=== PATIENT | female | born 1950 | race Caucasian/White ===

== ENCOUNTER 2019-11-14 12:25 | Emergency (ER) | payer MEDICARE, OTHER, SELFPAY ==
[2019-11-14] VITALS (12 sets, daily range): BP systolic 112–143; BP diastolic 55–69; PULSE 63–95; RESP 11–18; TEMP 36.9; O2SAT 98–100; BMI 22.4
--- NOTE | 2019-11-14 12:49 | ED_ITS ---
HPI - Chest Pain General Chief Complaint: Dizziness Stated Complaint: BP IS DROPPING, HAS BEEN FOR SOME TIME Time Seen by Provider: 11/14/19 12:30 Source: patient and family Mode of arrival: Wheelchair History of Present Illness HPI narrative: Patient is a 61-year-old female who presents with a variety of symptoms. Today she is having some chest heaviness and discomfort. She noticed when she woke up this morning she has bilateral arm heaviness. She had up and was watering the plants with the hose and noted that she had chest heaviness. She also felt like she was short of breath during this activity as well. She does does not feel quite right. She is currently being worked up for postprandial hypotension. She says for the past 1 month every time she eats her blood pressure drops so she has been keeping very good track of her blood pressure. She is scheduled for stress test and 4 days was previously seen by Cardiology last week. She denies having any chest pain now but just feels weak and fatigued. Related Data Home Medications Medication Instructions Recorded Confirmed ESOMEPRAZOLE SODIUM (NEXIUM) 20 mg PO QDAY@0600 #0 01/26/12 [ACYCLOVIR] 400 mg PO Q DAY #0 01/26/12 [FREDO MAG ZINC] #0 01/26/12 [CITRUCEL] 1 tbls PO QDAY #0 01/26/12 [D3] 1,000 iu PO QDAY #0 01/26/12 [DOCOSATE SODIUM] 100 mg PO QDAY #0 01/26/12 [ECOTRIN ASPIRIN] 81 mg PO #0 01/26/12 [LIPITOR-ATORVASTATIN] 20 mg PO QDAY #0 01/26/12 [LYRICA] 50 mg #0 01/26/12 [MAGNESIUM] 250 mg PRN #0 01/26/12 [OMEGA 3] 880 mg PO BID #0 01/26/12 [ORENCIA INFUSION] 750 mg #0 01/26/12 [OXYCODONE ACETAMINO] PRN #0 01/26/12 [VITAMIN B12] 500 mcg #0 01/26/12 [VITAMIN B6] 100 mg PO #0 01/26/12 [VITAMIN C] 1,000 mg PO QDAY #0 01/26/12 [XANAX] 0.25 mg PO BID #0 11/16/12 Allergies Allergy/AdvReac Type Severity Reaction Status Date / Time bacitracin Allergy Mild Blister Verified 11/14/19 12:50 neomycin Allergy Mild Blister Verified 11/14/19 12:50 [From Neosporin ([id number])] polymyxin B Allergy Mild Blister Verified 11/14/19 12:50 [From Neosporin ([id number])] PETROLEM BASEDM OINT Allergy Intermediate BLISTER Uncoded 06/20/17 12:14 Review of Systems Review of Systems ROS Unobtainable: All systems reviewed & are unremarkable except as noted in HPI and below Constitutional Constitutional: Denies chills, Denies fever(s), Denies lethargy and Denies weakness Eyes Eyes: Denies change in vision, Denies eye discharge, Denies irritation and Denies loss of vision Cardiovascular Cardiovascular: Reports as per HPI and Reports dyspnea on exertion Respiratory Respiratory: Denies excessive phlegm production and Reports dyspnea on exertion Gastrointestinal Gastrointestinal: Denies abdominal pain, Denies change in bowel habits, Denies diarrhea, Denies nausea and Denies vomiting Musculoskeletal Musculoskeletal: Denies arthralgias and Denies back pain Integumentary/Breasts Skin/Breast: Denies pruritus, Denies erythema, Denies rash and Denies wounds Neurologic Neurologic: Denies loss of vision and Denies weakness Patient History Medical History (Updated 11/14/19 @ 17:47 by Clare Montana DO) Hyperlipidemia (Acute) Social History Smoking Status: Never smoker Smoking Status: Never smoker alcohol intake frequency: 0-2 drinks per day Substance Use Type: does not use Exam Initial Vital Signs Initial Vital Signs: Vital Signs Blood Pressure 138/63 11/14/19 12:34 GENERAL: Anxious appearing middle-aged female and in no acute distress. HEENT: Head atraumatic,EOMI, pupils reactive, face symmetric, moist mucous membranes CARDIOVASCULAR: Regular rate and rhythm without murmurs, rubs or gallops. RESPIRATORY: Breath sounds equal bilaterally, no wheezes rales or rhonchi. ABDOMEN: Soft, nontender. Normoactive bowel sounds all 4 quadrants. No guarding or rebound. EXTREMITIES: Normal range of motion, no clubbing or edema. Neurovascularly intact NEUROLOGICAL: Alert and oriented x4.Normal gait and speech. Cranial nerves II through XII grossly intact. SKIN: Warm, dry, no laceration, no petechiae, no rashes or lesions. Course Orders Ordered: ED Orders 11/14/19 12:42 EKG-12 Lead Routine 11/14/19 12:48 XR chest 1V Stat 11/14/19 12:55 Complete Blood Count AUTO DIFF Stat Comprehensive Metabolic Panel Stat Lipase Stat NT-proBNP (BNP-Adult 18+) Stat Partial Thromboplastin Time Stat Prothrombin Time INR Stat Troponin & CK Cardiac Panel Stat 11/14/19 14:58 Troponin I Stat Discontinued Medications Sodium Chloride (Normal Saline 0.9%) 1,000 mls @ 1,000 mls/hr IV BOLUS ONE Stop: 11/14/19 13:46 Last Infusion: 11/14/19 15:52 Dose: 0 mls/hr Documented by: Admin: 11/14/19 13:30 Dose: 1,000 mls/hr Documented by: SANA Vital Signs Vital signs: Vital Signs - 8 hr 11/14/19 12:34 11/14/19 12:35 11/14/19 12:36 Temperature Pulse Rate 88 95 H Pulse Rate [Orthostatic Lying] Pulse Rate [Orthostatic Sitting] Pulse Rate [Orthostatic Standing] Respiratory Rate Blood Pressure 138/63 137/64 143/69 H Blood Pressure [Orthostatic Lying] Blood Pressure [Orthostatic Sitting] Blood Pressure [Orthostatic Standing] Pulse Oximetry 100 100 11/14/19 12:40 11/14/19 12:47 11/14/19 13:00 Temperature 98.5 F Pulse Rate 84 67 Pulse Rate [Orthostatic Lying] 63 Pulse Rate [Orthostatic Sitting] 64 Pulse Rate [Orthostatic Standing] 69 Respiratory Rate 17 11 L Blood Pressure 138/63 125/63 Blood Pressure [Orthostatic Lying] 138/63 Blood Pressure [Orthostatic Sitting] 137/64 Blood Pressure [Orthostatic Standing] 143/69 H Pulse Oximetry 99 100 11/14/19 13:30 11/14/19 14:00 11/14/19 14:30 Temperature Pulse Rate 71 69 73 Pulse Rate [Orthostatic Lying] Pulse Rate [Orthostatic Sitting] Pulse Rate [Orthostatic Standing] Respiratory Rate 18 Blood Pressure 118/56 L 113/55 L 122/58 L Blood Pressure [Orthostatic Lying] Blood Pressure [Orthostatic Sitting] Blood Pressure [Orthostatic Standing] Pulse Oximetry 100 98 99 11/14/19 15:00 11/14/19 15:15 11/14/19 15:30 Temperature Pulse Rate 69 64 Pulse Rate [Orthostatic Lying] Pulse Rate [Orthostatic Sitting] Pulse Rate [Orthostatic Standing] Respiratory Rate 16 17 Blood Pressure 113/55 L 117/56 L 112/56 L Blood Pressure [Orthostatic Lying] Blood Pressure [Orthostatic Sitting] Blood Pressure [Orthostatic Standing] Pulse Oximetry 100 99 MDM - Chest Pain Lab Data Attestation: I reviewed the patient's lab results. Result diagrams: 11/14/19 12:55 11/14/19 12:55 Labs: Lab Results 11/14/19 11/14/19 11/14/19 Range/Units 12:55 12:55 12:55 WBC 5.7 (4.5-11.0) X10^3/uL RBC 4.41 (4.0-5.2) X10^6/uL Hgb 13.4 (12.0-16.0) g/dL Hct 40.9 (36-46) % MCV 92.7 (80-100) fL MCH 30.4 (26-34) PG MCHC 32.8 (30-36) % RDW 12.8 (11.6-14.8) % Plt Count 280 (150-400) X10^3/uL Neut % (Auto) 70.2 (50-75) % Lymph % (Auto) 21.5 L (25-40) % [place] % (Auto) 6.4 (3-14) % Eos % (Auto) 1.4 L (2-4) % Baso % (Auto) 0.5 (0-2) % Neut # (Auto) 4000 (2257-7628) /uL Lymph # (Auto) 1200 (6714-6395) /uL [place] # (Auto) 400 (0-900) /uL Eos # (Auto) 100 (0-450) /uL Baso # (Auto) 0 (0-100) /uL PT 12.2 (10.1-12.7) SECONDS INR 1.1 (0.9-1.3) APTT 32 (26.4-36.2) SECONDS Sodium (137-145) mmol/L Potassium (3.4-5.1) mmol/L Chloride (98-107) mmol/L Carbon Dioxide (22-32) mmol/L BUN (7-17) mg/dL Creatinine (0.52-1.04) mg/dL Estimated GFR (>60) mL/min BUN/Creatinine Ratio (6-22) Glucose (80-110) mg/dL Calcium (8.4-10.2) mg/dL Total Bilirubin (0.2-1.3) mg/dL AST (14-36) IU/L ALT (<35) IU/L Alkaline Phosphatase (38-126) U/L Total Creatine Kinase (30-135) U/L CK-MB (CK-2) CK-MB (CK-2) Rel Index Troponin I (0.01-0.034) ng/mL NT-Pro-B Natriuret Pep 81 (<125) pg/mL Total Protein (6.3-8.2) g/dL Albumin (3.5-5.0) g/dL Globulin (1.7-4.1) g/dL Albumin/Globulin Ratio (1.0-2.8) Lipase (23-300) U/L 11/14/19 11/14/19 Range/Units 12:55 14:58 WBC (4.5-11.0) X10^3/uL RBC (4.0-5.2) X10^6/uL Hgb (12.0-16.0) g/dL Hct (36-46) % MCV (80-100) fL MCH (26-34) PG MCHC (30-36) % RDW (11.6-14.8) % Plt Count (150-400) X10^3/uL Neut % (Auto) (50-75) % Lymph % (Auto) (25-40) % [place] % (Auto) (3-14) % Eos % (Auto) (2-4) % Baso % (Auto) (0-2) % Neut # (Auto) (2034-6407) /uL Lymph # (Auto) (3620-4677) /uL [place] # (Auto) (0-900) /uL Eos # (Auto) (0-450) /uL Baso # (Auto) (0-100) /uL PT (10.1-12.7) SECONDS INR (0.9-1.3) APTT (26.4-36.2) SECONDS Sodium 134 L (137-145) mmol/L Potassium 4.2 (3.4-5.1) mmol/L Chloride 100 (98-107) mmol/L Carbon Dioxide 28 (22-32) mmol/L BUN 18 H (7-17) mg/dL Creatinine 0.71 (0.52-1.04) mg/dL Estimated GFR > 60.0 (>60) mL/min BUN/Creatinine Ratio 25.4 H (6-22) Glucose 103 (80-110) mg/dL Calcium 9.5 (8.4-10.2) mg/dL Total Bilirubin 0.3 (0.2-1.3) mg/dL AST 26 (14-36) IU/L ALT 19 (<35) IU/L Alkaline Phosphatase 66 (38-126) U/L Total Creatine Kinase 44 (30-135) U/L CK-MB (CK-2) TNP CK-MB (CK-2) Rel Index TNP Troponin I < 0.012 < 0.012 (0.01-0.034) ng/mL NT-Pro-B Natriuret Pep (<125) pg/mL Total Protein 7.6 (6.3-8.2) g/dL Albumin 4.3 (3.5-5.0) g/dL Globulin 3.3 (1.7-4.1) g/dL Albumin/Globulin Ratio 1.3 (1.0-2.8) Lipase 144 (23-300) U/L Urine Dip Bedside Urine Glucose Negative Bedside Urine Bilirubin - Negative Bedside Urine Ketone +/- 5 Urine Specific Loyal 1.010 Bedside Urine Occult Blood - Negative Bedside Urine pH 6.0 Bedside Urine Protein - Negative Bedside Urine Urobilinogen - Negative Bedside Urine Nitrite - Negative Bedside Urine Leukocytes - Negative Esterase Imaging Data Chest x-ray: Radiologist's Impression: PROCEDURE: XR CHEST 1V INDICATIONS: chest pain TECHNIQUE: One view of the chest was acquired. COMPARISON: None. FINDINGS: Surgical changes and devices: None. Lungs and pleura: Lungs are clear. No pleural effusions or pneumothorax. Mediastinum: Mediastinal contours appear normal. Heart size is normal. Bones and chest wall: No suspicious bony lesions. Overlying soft tissues appear unremarkable. IMPRESSION: No evidence acute pulmonary process. Dictated by: Alexander Fabian M.D. on 11/14/2019 at 13:07 Approved by: Alexander Fabian M.D. on 11/14/2019 at 13:08 ECG Data Attestation: I personally reviewed and interpreted this ECG as follows: Interpretation: Normal sinus rhythm rate 72 p.r. interval 156 QRS [address] changes or sign of ischemia MDM Narrative Medical decision making narrative: Patient states she started having some chest pain episodes while in the ED. She says like it squeezes for 1-2 seconds in then lets go. Repeat troponin is negative. She actually has a stress test scheduled for Sunday. Her blood pressure has remained stable while in the ED she did have 2 crackers but did not need much otherwise. At this time I recommend she follow up outpatient as arranged Discharge Plan Departure Patient Disposition: Home Clinical Impression: Atypical chest pain Discharge Date/Time: 11/14/19 15:58 Instructions: DI for Atypical Chest Pain Activity Restrictions/Additional Instructions: *You have been diagnosed with atypical chest pain *What to do: Your blood work and EKG are overall reassuring today. I recommend that you proceed with your outpatient stress test next week continue to work with Cardiology in regards to your low blood pressure *Continue to take medications as directed *Follow up with your primary care provider in 2-3 days *Return to ER if you should have worsening chest pain, increasing shortness of breath, passing out, dizziness or any new, worsening or concerning symptoms Prescriptions: No Action [ACYCLOVIR] 400 mg PO Q DAY Qty: 0 RF: 0 [VITAMIN B12] 500 mcg Qty: 0 RF: 0 [VITAMIN B6] 100 mg PO Qty: 0 RF: 0 [FREDO MAG ZINC] Qty: 0 RF: 0 [CITRUCEL] 1 tbls PO QDAY Qty: 0 RF: 0 [D3] 1,000 iu PO QDAY Qty: 0 RF: 0 [DOCOSATE SODIUM] 100 mg PO QDAY Qty: 0 RF: 0 [ECOTRIN ASPIRIN] 81 mg PO Qty: 0 RF: 0 [LIPITOR-ATORVASTATIN] 20 mg PO QDAY Qty: 0 RF: 0 [LYRICA] 50 mg Qty: 0 RF: 0 [MAGNESIUM] 250 mg PRN Qty: 0 RF: 0 ESOMEPRAZOLE SODIUM (NEXIUM) 20 mg PO QDAY@0600 Qty: 0 RF: 0 [OXYCODONE ACETAMINO] PRN Qty: 0 RF: 0 [OMEGA 3] 880 mg PO BID Qty: 0 RF: 0 [ORENCIA INFUSION] 750 mg Qty: 0 RF: 0 [VITAMIN C] 1,000 mg PO QDAY Qty: 0 RF: 0 [XANAX] 0.25 mg PO BID Qty: 0 RF: 0 Referrals: Carroll Gallo MD [Primary Care Provider] -
[2019-11-14 13:09] LABS: Add Manual Diff / Slide Review NO; Basophils Absolute Auto 0 /uL (0-100); Basophils Percent Auto 0.5 % (0-2); Eosinophils Absolute Auto 100 /uL (0-450); Eosinophils Percent Auto 1.4 % (2-4); Hematocrit 40.9 % (36-46); Hemoglobin 13.4 g/dL (12.0-16.0); Lymphocytes Absolute Auto 1200 /uL (1100-4500); Lymphocytes Percent Auto 21.5 % (25-40); Mean Corpuscular HGB Conc 32.8 % (30-36); Mean Corpuscular Hemoglobin 30.4 PG (26-34); Mean Corpuscular Volume 92.7 fL (80-100); Monocytes Absolute Auto 400 /uL (0-900); Monocytes Percent Auto 6.4 % (3-14); Neutrophils Absolute Auto 4000 /uL (1500-7000); Neutrophils Percent Auto 70.2 % (50-75); Platelet Count 280 X10^3/uL (150-400); Red Blood Cell Count 4.41 X10^6/uL (4.0-5.2); Red Cell Distribution Width 12.8 % (11.6-14.8); White Blood Cell Count 5.7 X10^3/uL (4.5-11.0)
[2019-11-14 13:18] LABS: INR 1.1 (0.9-1.3); Prothrombin Time 12.2 SECONDS (10.1-12.7)
[2019-11-14 13:21] LABS: PTT Partial Thromboplastin Tim 32 SECONDS (26.4-36.2)
[2019-11-14 13:23] LABS: Alanine Aminotransferase 19 IU/L (<35); Albumin 4.3 g/dL (3.5-5.0); Albumin Globulin Ratio 1.3 (1.0-2.8); Alkaline Phosphatase 66 U/L (38-126); Aspartate Aminotransferase 26 IU/L (14-36); BUN Creatinine Ratio 25.4 (6-22); Bilirubin Total 0.3 mg/dL (0.2-1.3); Blood Urea Nitrogen 18 mg/dL (7-17); Calcium 9.5 mg/dL (8.4-10.2); Carbon Dioxide 28 mmol/L (22-32); Chloride 100 mmol/L (98-107); Creatine Kinase 44 U/L (30-135); Estimated Glomerular Filt Rate > 60.0 mL/min (>60); Globulin 3.3 g/dL (1.7-4.1); Glucose 103 mg/dL (80-110); HEMOLYSIS < 15 (0-50); Lipase 144 U/L (23-300); Potassium 4.2 mmol/L (3.4-5.1); Sodium 134 mmol/L (137-145); Total Protein 7.6 g/dL (6.3-8.2)
[2019-11-14] MEDS: SODIUM CHLORIDE 0.9% 1,000 ML 1000 ML IV (13:30)
[2019-11-14 13:32] LABS: NT-proBNP (BNP-Adult 18+) 81 pg/mL (<125)
[2019-11-14 13:34] LABS: Troponin I < 0.012 ng/mL (0.01-0.034)
--- NOTE | 2019-11-14 15:17 | PC.NURSE ---
pt ambulatory to bathroom steady gait
[2019-11-14 15:37] LABS: Troponin I < 0.012 ng/mL (0.01-0.034)
== END 2019-11-14 15:58 | disposition home or self-care (01) ==
PROVIDERS: Emergency Provider Emergency Medicine; Family Provider Internal Medicine; PCP Family Medicine
DX: R06.02 Shortness of breath (principal); R07.89 Other chest pain
CPT/HCPCS: 36415; 71045; 80053; 81003; 82550; 83690; 83880; 84484; 85025; 85610; 85730; 93005; 96360; 96361; 99284